=== PATIENT | female | born 1935 | race Caucasian/White ===

== ENCOUNTER 2019-12-27 18:43 | Emergency (ER) | payer OTHER ==
[2019-12-27 18:55] VITALS: BP 115/51; PULSE 56; TEMP 98.4; BMI 30.2
--- NOTE | 2019-12-27 19:44 | PDOC ---
Documentation entered by Arsen Spivey SCRIBE, acting as scribe for Amparo Casillas DO. Amparo Casillas DO: This documentation has been prepared by the Patric murry Xhesika, SCRIBE, under my direction and personally reviewed by me in its entirety. I confirm that the documentation accurately reflects all work, treatment, procedures, and medical decision making performed by me. Attending Attestation - Resident Resident Name: Curt Ellis - ED Attending Attestation I have performed the following: I have examined & evaluated the patient, The case was reviewed & discussed with the resident, I agree w/resident's findings & plan, Exceptions are as noted - HPI HPI: 12/27/19 19:24 The patient is a 84y/o F with a PMH of hypertension who presents to the ED for 2 weeks of intermittent sore throat. Pt denies any fevers up until this morning when she checked her temp and it was 100.0. Pt states she took Tylenol at 11AM and has no fevers since then. Pt states she only came to the ED because she has been endorsing dysuria since yesterday. The patient denies chest pain, shortness of breath, bodyaches, headache and dizziness. Denies chills, cough, nausea, vomiting, diarrhea and constipation. Denies abdominal pain, suprapubic pain,requency, urgency and hematuria. Allergies: NKDA - Physicial Exam PE: 12/27/19 19:33 GENERAL: Awake, alert, and fully oriented, in no acute distress HEAD: No signs of trauma EYES: PERRLA, EOMI, sclera anicteric, conjunctiva clear ENT: Auricles normal inspection, hearing grossly normal, +mild erythema to posterior exudates NECK: Normal ROM, supple, no lymphadenopathy, JVD, or masses LUNGS: Breath sounds equal, clear to auscultation bilaterally. No wheezes, and no crackles HEART: Regular rate and rhythm, normal S1 and S2, no murmurs, rubs or gallops=DOMEN: Soft, nontender,normoactive bowel sounds. No guarding, no rebound. No masses EXTREMITIES: Normal range of motion, no edema. No clubbing or cyanosis. No cords, erythema, or tenderness NEUROLOGICAL: Cranial nerves II through XII grossly intact. Normal speech, normal gait SKIN: Warm, Dry, normal turgor, no rashes lesions noted. - Medical Decision Making 12/27/19 19:42 a/p: 84yo female with hx htn with dysuria x 1 day -also c/o intermittent sore throat x2 weeks. Lives at home and has been quarantining, but has a home visiting health aide -had a fever of 100 at 9am, took tylenol at 11am, nothing since -afebrile in the ER -pt upgraded from fast track -will send ua, ucx, covid, strep -will monitor and reassess 12/27/19 20:22 labs reviewed strep neg covid pending pt is symptomatic, but neg ua, ucx pending will treat symptomatic complaints no vaginal complaints stable for dc to home Discharge - Discharge Information Problems reviewed: Yes Clinical Impression/Diagnosis: Sore throat (viral) UTI (urinary tract infection) Qualifiers: Urinary tract infection type: acute cystitis Hematuria presence: without hematuria Qualified Code(s): N30.00 - Acute cystitis without hematuria Condition: Stable Disposition: HOME - Admission No - Follow up/Referral - Patient Discharge Instructions Patient Printed Discharge Instructions: DI for Urinary Tract Infection (UTI), DI for Viral Pharyngitis Additional Instructions: Usted fue evaluada por dolor nogueira. [place] prueba del coronavirus va resultar en 3-4 garcia. Si [place] prueba esta positivo, el hospital la va llamar con el resultado. Ve a [place] doctor de cabezera en 3-4 garcia. Regresa a la danay de urgencias si empiezas a tener fiebres altas, dolor de pecho, o dificultad respirando. - Post Discharge Activity
--- NOTE | 2019-12-27 19:46 | PDOC ---
History of Present Illness - General Chief Complaint: Sore Throat Stated Complaint: SORE THROAT Time Seen by Provider: 12/27/19 19:00 History Source: Patient, Family - History of Present Illness Initial Comments: 12/27/19 19:40 84F w/hx HTN p/w two weeks of sore throat, mild dysuria, low grade temperature today. She is accompanied by her son. They report that this morning her home health aid noted a temperature to 100.1F. She received x1 acetaminophen at 1100 this morning. She also endorses mild intermittent dysuria for the last several days. She denies any confusion, fevers, chills, nausea, vomiting, abdominal pain, weakness, fatigue, visual or auditory hallucinations, or sick contacts. She has been self quarantining in her home, only contacts are her home health aid and her son. Past History - Medical History Allergies/Adverse Reactions: Allergies Allergy/AdvReac Type Severity Reaction Status Date / Time No Known Allergies Allergy Verified 12/27/19 18:55 Home Medications: Ambulatory Orders Lisinopril [Prinivil] 10 mg PO DAILY #30 tablet 01/29/16 Cephalexin [Keflex] 500 mg PO BID 3 Days #6 capsule 12/27/19 COPD: No HTN: Yes Thyroid Disease: Yes - Surgical History Cholecystectomy: Yes - Immunization History Immunization Up to Date: No - Psycho-Social/Smoking History Smoking History: Never smoked Have you smoked in the past 12 months: No Information on smoking cessation initiated: No - Substance Abuse Hx (Audit-C & DAST Scrn) How often the patient has a drink containing alcohol: Never Score: In Men: 4 or > Positive; In Women: 3 or > Positive: 0 Screen Result (Pos requires Nsg. Audit-10AR): Negative In the last yr the pt used illegal drug/Rx for NonMed reason: No Score: Yes response is considered Positive: 0 Screen Result (Positive result requires Nsg. DAST-10): Negative Review of Systems - Review of Systems Able to Perform ROS?: Yes Comments:: 12/27/19 19:42 GENERAL/CONSTITUTIONAL: No fever or chills. No weakness. HEAD, EYES, EARS, NOSE AND THROAT: Sore throat. No change in vision. No ear pain or discharge. CARDIOVASCULAR: No chest pain or shortness of breath RESPIRATORY: No cough, wheezing, or hemoptysis. GASTROINTESTINAL: No nausea, vomiting, diarrhea or constipation. GENITOURINARY: Dysuria. No frequency, or other change in urination. MUSCULOSKELETAL: No joint or muscle swelling or pain. No neck or back pain. SKIN: No rash NEUROLOGIC: No headache, vertigo, loss of consciousness, or change in strength/sensation. ENDOCRINE: No increased thirst. No abnormal weight change HEMATOLOGIC/LYMPHATIC: No anemia, easy bleeding, or history of blood clots. ALLERGIC/IMMUNOLOGIC: No hives or skin allergy. *Physical Exam - Vital Signs Last Vital Signs Temp Pulse Resp BP Pulse Ox 98.4 F 56 L 16 115/51 L 99 12/27/19 18:45 12/27/19 18:45 12/27/19 18:45 12/27/19 18:45 12/27/19 18:45 - Physical Exam 12/27/19 19:43 GENERAL: Awake, alert, and fully oriented, in no acute distress HEAD: No signs of trauma, normocephalic, atraumatic EYES: PERRLA, EOMI, sclera anicteric, conjunctiva clear ENT: Auricles normal inspection, hearing grossly normal, nares patent, oropharynx clear without exudates. Moist mucosa NECK: Normal ROM, supple, no lymphadenopathy, JVD, or masses LUNGS: No distress, speaks full sentences, clear to auscultation bilaterally HEART: Regular rate and rhythm, normal S1 and S2, no murmurs, rubs or gallops, peripheral pulses normal and equal bilaterally. ABDOMEN: Soft, nontender, normoactive bowel sounds. No guarding, no rebound. No masses EXTREMITIES : Normal inspection, Normal range of motion, no edema. No clubbing or cyanosis NEUROLOGICAL: Cranial nerves II through XII grossly intact. Normal speech, normal gait, no focal sensorimotor deficits SKIN: Warm, Dry, normal turgor, no rashes or lesions noted Medical Decision Making - Medical Decision Making 12/27/19 19:44 84F w/hx HTN p/w two weeks of sore throat, dysuria, well appearing non-tender abdomen on exam, no erythema, plaques, ulcerations visible on oropharynx. Ddx viral URI, UTI, covid-19. Plan: UA Urine culture COVID-19 swab Strep swab Dispo: Discharge 12/27/19 20:19 UA - negative leuk esterase, negative nitrites, no blood or urine bacteria Rapid strep - pending 12/27/19 20:22 Strep - negative Plan for discharge with Keflex 500mg BID for 3 days given dysuria. Discharge - Discharge Information Problems reviewed: Yes Clinical Impression/Diagnosis: Sore throat (viral) UTI (urinary tract infection) Qualifiers: Urinary tract infection type: acute cystitis Hematuria presence: without hematuria Qualified Code(s): N30.00 - Acute cystitis without hematuria Condition: Stable Disposition: HOME - Admission No - Additional Discharge Information Prescriptions: Cephalexin [Keflex] 500 mg PO BID 3 Days #6 capsule - Follow up/Referral - Patient Discharge Instructions Patient Printed Discharge Instructions: DI for Urinary Tract Infection (UTI), DI for Viral Pharyngitis Additional Instructions: Usted fue evaluada por dolor de vicky. [place] prueba del coronavirus va resultar en 3-4 garcia. Si [place] prueba esta positivo, el hospital la va llamar con el resultado. Ve a [place] doctor de cabezera en 3-4 garcia. Regresa a la danay de urgencias si empiezas a tener fiebres altas, dolor de pecho, o dificultad respirando. Print Language: YAKUT - Post Discharge Activity
[2019-12-27 20:08] LABS: PH,URINE 5.5 (5.0-8.0); URINE APPEARANCE CLEAR; URINE BILIRUBIN NEGATIVE (NEGATIVE); URINE COLOR YELLOW; URINE GLUCOSE (UA) NEGATIVE (NEGATIVE); URINE KETONE NEGATIVE (NEGATIVE); URINE LEUK ESTERASE NEGATIVE (NEGATIVE); URINE NITRITE NEGATIVE (NEGATIVE); URINE PROTEIN NEGATIVE (NEGATIVE); URINE UROBILINOGEN 0.2 mg/dL (0.2-1.0)
[2019-12-27 20:20] LABS: THROAT:GRP A STREP ANTIGEN Negative (Negative)
== END 2019-12-27 20:41 | disposition home or self-care (01) ==
LOC: JER 18:43 → JERFT 18:43 → JER 20:41
DX: N30.00 Acute cystitis without hematuria (principal); R07.0 Pain in throat
CPT/HCPCS: 81003; 87070; 87086; 87880; 99283-25; U0003